=== PATIENT | female | born 1980 | race Two or more races ===

== ENCOUNTER 2016-09-27 03:15 | Inpatient (IN) | payer SELFPAY ==
--- NOTE | ~2016-09-27 | CN ---
Consultation Report [facility] [address] [place]. [address] NAME: KOJO WEAVER : 76 STATUS : ADM IN PAT#: [id number] AGE: 36 ADM/REG DATE : 09/27/16 MR#: [id number] REPORT SERV DATE: 09/28/16 DICTATED BY: CLINTON MURILLO DATE: 09/28/16 REPORT STATUS : Draft TRANSCRIBED BY: YARON DATE: 09/28/16 INFECTIOUS DISEASE CONSULT DATE OF CONSULTATION: REASON FOR CONSULT: Meningitis. HISTORY OF PRESENT ILLNESS: This is a 36-year-old lady with past medical history of "viral meningitis" two years ago at [facility], history of pulmonary embolism and endometriosis who was transferred from [facility] ER for treatment of meningitis. About 12 days ago, she noticed a left upper inner thigh "bite" or "boil" with a purple center, followed by progressive redness and pain around it. Eventually, this place drained mixture of cloudy fluid, blood, and had an odor. She was tired and had a temp in the 99 range. She went to the emergency room about eight days ago at [facility] [place] and was prescribed Augmentin and clindamycin, but she took only the Augmentin. Of note is that she has been having skin lesions in bilateral upper inner thighs and suprapubic areas and the armpits. She did not see either. Four days ago in the evening, she had the acute onset of severe headache all areas and retro orbital, which she describes as a crushing headache. This was made worse by moving. Sometimes, her ears were throbbing. She then had some pain and stiffness in the neck and pain between the scapulae, but hard to focus, her vision was sensitive to light. The headache was severe and woke up during the night. She tried to stay put for a day or two, but eventually went to the emergency room at [facility] [place] two days ago. She did not have any high fever, but she had some body aches, a little nausea, occasional wrist and shoulder pain, and three to four soft bowel movements a day. She noticed a "rash" in both popliteal areas, but this preceded taking the Augmentin. At the emergency room at [facility], she had several investigations. A CT of the brain without contrast was not revealing. LABORATORY WORK: Lab work showed a WBC of 8, hemoglobin 13. Creatinine 0.6. ALT 10, AST 12. Urinalysis with 5-9 white blood cells. She had an LP which apparently was difficult, they had to go multiple times, and I do not have a description of an opening pressure. White blood cell count was elevated with 26 white blood cells in the first tube with 87% lymphocytes with 66 red blood cells and then in tube 4, there were 30 white blood cells, no red blood cells, and 91% lymphocytes; glucose was 62; protein is 35, so not elevated. She was given Rocephin and then she was transferred to [facility]. Here, she was given vancomycin, Rocephin, and acyclovir. Further workup including an MRI of the brain without contrast and an MRV because she had a history of PE. Procalcitonin was Consultation Report [place] [id number] [facility] [place]. [address] NAME: KOJO WEAVER : 76 STATUS : ADM IN [facility]#: [id number] AGE: 36 ADM/REG DATE : 09/27/16 MR#: [id number] REPORT SERV DATE: 09/28/16 DICTATED BY: CLINTON MURILLO DATE: 09/28/16 REPORT STATUS : Draft TRANSCRIBED BY: MODChon DATE: 09/28/16 not elevated. CBC within normal limits. Creatinine 0.6. The headache is not better, in fact, might be worse but it has not changed its character after the spinal tap. She complains of fatigue. She reported no ear drainage. No nose drainage. No sore throat. No vomiting. No urinary symptoms. No toothaches. PAST MEDICAL HISTORY: 1. States she was hospitalized two years ago at [facility] and was told she had viral meningitis, but she was given some kind of antibiotic anyway. She does not know what caused that and does not know what antibiotics did she take. 2. History of pulmonary embolism. 3. Endometriosis and she had some ablation procedure for that. 4. She has history of heartburn. 5. She has been having these furuncles as I described. 6. She reports negative PPDs in the past. No known history of HIV or hepatitis. No history of genital herpes. MEDICATIONS: Claritin, Zyrtec, omeprazole. FAMILY HISTORY: Hypertension, diabetes, stroke, and heart disease. ALLERGIES: NONE. NONE OF HER CONTACTS WERE SICK RECENTLY. 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 She smokes occasionally. Never done drugs or IV drugs. She has two sons, teenagers and two daughters ages 11 and 8. They have not been sick lately. She is in the process of divorce from her ex- who left her for another woman and now she lives with a boyfriend. She is unaware of the boyfriend, ex- , or ex-'s girlfriend having any STDs and/or traveling to [place] area. She works outdoors sometimes in the yard. She has not been hiking, fishing. She has two dogs but no bites or scratches. She has had mosquito bites. She is unaware of tick bites. There are no exposure to animals or bats. She has always lived in [place]. She traveled to [place], [place], in March. No water exposure. No exposure to mice, rats, or bird droppings. No caving. PHYSICAL EXAMINATION: Done in the presence of Griselda registered nurse: HEENT: Sclerae are white. Nose with some mucus in the left nostril. Ears with some wax, but no obvious inflammation in either. LYMPH NODES: No palpable cervical, supraclavicular, or axillary adenopathy. NECK: With good range of motion in all directions but some tenderness when she moves it Consultation Report [place] [id number] [facility] [place]. [address] NAME: KOJO WEAVER : 78 STATUS : ADM IN [facility]#: [id number] AGE: 36 ADM/REG DATE : 09/27/16 MR#: [id number] REPORT SERV DATE: 09/28/16 DICTATED BY: CLINTON MURILLO DATE: 09/28/16 REPORT STATUS : Draft TRANSCRIBED BY: YARON DATE: 09/28/16 [id number]. EXTREMITIES: Armpits with some scars from previous lesions. Same on the upper inner thighs and suprapubic area. Where she had a boil in the left upper thigh, there is just a small hole but there is no cellulitis. With the patient's permission, we did vulvar exam and there is no ulcer or scar. No perianal ulcer or scar. No hands or feet lesions. Both popliteal areas, she has a blanching rash that is papular on the right, more diffuse red on the left. The patient is alert, obese, not in acute distress. INVESTIGATIONS: I called the microbiology lab at [facility] [place] and I was told CSF and one blood cultures are the only cultures done and those are negative so far. No additional CSF tests were ordered. ASSESSMENT AND PLAN: 1. Meningitis with lymphocytic pleocytosis. 2. History of "viral meningitis" years ago at [facility]. 3. Inner thighs and suprapubic furunculosis. 4. Bilateral popliteal blanching rash that preceded taking Augmentin. The etiology of this process is not obvious. 1. She has no history of genital herpes, although recurrent meningitis could be secondary to herpes simplex virus, so-called Mollaret meningitis. 2. The acute onset is not typical for cryptococcus. 3. Bacterial meningitis seems less likely with this presentation and lab findings. 4. West Nile virus or other mosquito-borne infections are possible. No recent travel for her boyfriend to [place] endemic areas. 5. No known tick bites, although she does spend time outdoors. 6. No history of TB. She had negative PPDs in the past. 7. Noninfectious etiologies possible including autoimmune. We will follow up the available cultures and I request CSF for cryptococcal antigen and herpes simplex PCR. As I mentioned, I discussed with the integrated pest management technician at [facility] and here at [facility] to coordinate this. We will follow up liver function test. They typically are elevated with a tick-borne illnesses. Follow up clinically. Antibiotic zuluaga, we will continue the acyclovir for now in case this could be herpes simplex related, but discontinue the vancomycin. Likely, the Rocephin could be stopped as well soon. I discussed the above with the patient and she had the opportunity to ask questions. I discussed with other lab technicians as I mentioned. I reviewed the records from our computer and from [facility]. I spent two hours with this consult, more than half face-to- face. Consultation Report [facility] [address] [place] [address] NAME: KOJO WEAVER : 76 STATUS : ADM IN [facility]#: [id number] AGE: 36 ADM/REG DATE : 09/27/16 MR#: [id number] REPORT SERV DATE: 09/28/16 DICTATED BY: CLINTON MURILLO DATE: 09/28/16 REPORT STATUS : Draft TRANSCRIBED BY: YARON DATE: 09/28/16 ISMRAN/YARON Clinton Murillo M.D. / [id number] CC: Paddy Franklin
--- NOTE | ~2016-09-27 | HP ---
History And Physical [place] [id number] [facility] [place]. [address] NAME: KOJO WEAVER : 76 STATUS : ADM IN PAT#: [id number] AGE: 36 ADM/REG DATE : 09/27/16 MR#: [id number] REPORT SERV DATE: 09/27/16 DICTATED BY: KEY ACEVEDO DATE: 09/27/16 REPORT STATUS : Draft TRANSCRIBED BY: MODL DATE: 09/27/16 DATE OF ADMISSION: 09/27/2016 POINT OF ENTRY: [facility] Emergency Department. PRIMARY CARE PHYSICIAN: Dr. Jurgen Tabor. CHIEF COMPLAINT: Headaches, fevers, neck pain, and stiffness. HISTORY OF PRESENT ILLNESS: Ms Weaver is a 36-year-old female with a prior history of pulmonary embolism as well as viral meningitis who presents to the emergency department today with a two-day history of low-grade fevers, headaches, as well as neck pain and stiffness. The patient states that about a week ago she had a bite on the inner medial part of her left thigh, which then developed some associated redness and induration. She was seen at [facility] Emergency Department and placed on antibiotics of Augmentin as well as clindamycin. The patient admits that she misplaced her clindamycin and has not taken it for quite some time, but is taking her Augmentin. She feels that the cellulitis has improved while on her antibiotics. About two days ago, she started to develop severe headache as well as low-grade fevers of 99 degrees to 100 degrees Fahrenheit as well as associated neck stiffness and pain. These symptoms are very similar to when she had viral meningitis a few years ago; therefore, she presented to the emergency department. Initial evaluation in the emergency department notable for CT scan of the brain that was unremarkable. CBC showed normal white count. CMP was unremarkable. Urinalysis was concerning for possible urinary tract infection. The patient underwent lumbar puncture, results of which are consistent with possible viral meningitis. She was started on IV Rocephin and transferred to [facility] for higher level of care as [facility] does not have any neurologist on-call this weekend. In addition to the left inner thigh cellulitis and headaches, fevers, and neck pain and stiffness, the patient also reports a pruritic rash in the bilateral popliteal region. Otherwise, comprehensive review of system otherwise negative unless listed in the history of present illness. PREVIOUS MEDICAL HISTORY: 1. History of PE. No longer on anticoagulation. 2. History of viral meningitis. 3. Endometriosis. SURGICAL HISTORY: Endometrial ablation. ALLERGIES: NO KNOWN DRUG ALLERGIES. History And Physical [address] [place]. [address] NAME: KOJO WEAVER : 78 STATUS : ADM IN PAT#: [id number] AGE: 36 ADM/REG DATE : 09/27/16 MR#: [id number] REPORT SERV DATE: 09/27/16 DICTATED BY: KEY ACEVEDO DATE: 09/27/16 REPORT STATUS : Draft TRANSCRIBED BY: MODChon DATE: 09/27/16 HOME MEDICATIONS: Pending at the time of dictation. SOCIAL HISTORY: Occasional tobacco use. Denies any alcohol or illicits. 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 FAMILY MEDICAL HISTORY: Mother with hypertension and stroke. Father with diabetes and coronary artery disease. LABS AND IMAGING: All obtained from transfer records from [facility]: 1. White count is 8.3, hemoglobin is 13.2, hematocrit is 39.8, platelets are 233. INR 0.9. 2. Sodium is 135, potassium 3.5, chloride 101, carbon dioxide 28, BUN 9, creatinine 0.65, glucose is 116, calcium is 8.7, protein is 7.4, albumin is 3.5, bilirubin is 0.5, ALT is 10, AST is 12, alkaline phosphatase is 68. 3. Urinalysis: Specific gravity is 1.015 with moderate leukocyte esterase with 5 to 9 white blood cells per high-powered field. 4. CSF analysis; tube #1 is clear in appearance with 26 white blood cells with 66 red blood cells and 87% lymphocytes. CSF tube #4 is clear in appearance, 30 white blood cells with 0 red blood cells and 91% lymphocytes. Tube #2 analysis shows a glucose of 62, protein of 35. Gram stain shows no organisms with a few white blood cells. 5. CT scan of the brain is unremarkable. PHYSICAL EXAMINATION: VITAL SIGNS: Temperature is 98.3 degrees Fahrenheit, pulse is 80, respirations 16, saturating 96% on room air, blood pressure is 140/87. GENERAL: The patient is awake, alert, in no acute distress. Resting comfortably in bed. She is an obese young female. HEENT: Atraumatic and normocephalic. Moist mucous membranes. Pupils are equal, round, reactive to light and accommodation. Extraocular eye movements intact. No scleral icterus. NECK: No jugular venous distention. No carotid bruits. CARDIAC: Regular rate and rhythm. No murmurs or gallops. Normal S1, S2. LUNGS: Clear to auscultation bilaterally. No wheezes, rhonchi, or rales. ABDOMEN: Obese, soft, nontender, nondistended. Good bowel sounds. No rebound, guarding, or rigidity. EXTREMITIES: Warm and perfused with no cyanosis, clubbing, or edema. SKIN: There is an area of cellulitis in the medial portion of her inner left thigh with a small area of superficial ulceration. The area of cellulitis is well within the marker boundaries that were made upon initial diagnosis. The patient also does have a maculopapular rash in the bilateral posterior knee region. PSYCH: Affect appropriate. NEURO: Alert and oriented x3. Cranial nerves 2 through 12 are grossly intact. Speech is normal. Gait not assessed. ASSESSMENT AND PLAN: Ms Weaver is a 36-year-old female who presents with a two-day history of neck pain, stiffness, headaches, and low-grade fevers and found to have evidence of meningitis in a likely viral pattern. History And Physical [address] [address] NAME: KOJO WEAVER : 76 STATUS : ADM IN [facility]#: [id number] AGE: 36 ADM/REG DATE : 09/27/16 MR#: [id number] REPORT SERV DATE: 09/27/16 DICTATED BY: KEY ACEVEDO DATE: 09/27/16 REPORT STATUS : Draft TRANSCRIBED BY: MODChon DATE: 09/27/16 PROBLEM LIST: 1. Meningitis, likely viral. 2. Severe headache. 3. Left thigh cellulitis. PLAN: 1. Meningitis. The patient appears to have meningitis. Both tubes #1 and #4 have greater than 5 white blood cells. The pattern is most consistent with a viral pattern given lymphocytic predominance as well as the mild white cell elevation with relatively normal appearing glucose and protein levels. We will empirically treat for both bacterial and viral meningitis overnight until Neurology is able to see the patient in the morning as well as until CSF culture results are available from [facility]. 2. Severe headache. CT scan of the brain is unremarkable, likely secondary to #1 above. We will treat supportively overnight with Tylenol as well as narcotics. 3. Left thigh cellulitis. This seems to be improving while on the Augmentin. We will hold the patient's Augmentin, and she will be started on Rocephin and vancomycin for bacterial meningitis treatment. 4. DVT prophylaxis. Lovenox subcu. CODE STATUS: The patient wished to be full code. JCB/MODL Key Acevedo MD / [id number] CC: MD Jurgen Dunn MD
--- NOTE | ~2016-09-27 | CN ---
Consultation Report [facility] [address] [place]. [address] NAME: KOJO WEAVER : 78 STATUS : ADM IN PAT#: [id number] AGE: 36 ADM/REG DATE : 09/27/16 MR#: [id number] REPORT SERV DATE: 09/27/16 DICTATED BY: DATE: REPORT STATUS : Draft TRANSCRIBED BY: MODL DATE: 09/27/16 NEUROLOGY CONSULTATION DATE OF CONSULTATION: 09/27/2016 REASON FOR CONSULT: Meningitis. HISTORY OF PRESENT ILLNESS: This is a 36-year-old female, presented to [facility] as outside transfer on 09/27/2016, for suspected viral meningitis. The patient was noted to have roughly four-day duration of the headache located in the entire head. With the patient described the headache as generalized pain. Otherwise, reports some dizzy sensation as well as blurry vision, with photophobia and phonophobia. Denies any nausea or vomiting. The patient reports a low-grade fever for roughly six to seven days, ranging from roughly 99.9 to 100 degrees. The patient otherwise reports the headache is improved with the laying down and going to sleep, and worse with bending over and ambulating. The patient does have previous viral meningitis in the past and reports the headache to be similar to viral meningitis. Otherwise, the patient reports some mild headache one or two times a month, not usually resolve with Tylenol. No history of migraine diagnosis was noted at the time of evaluation. The patient does reports no insect bites in the leg. Roughly one to two weeks ago, with the patient noted to have a rash in the bilateral posterior knee region, as well as a rash around the area of the insect bite. The patient otherwise reports having to concentrate at work, but otherwise no loss consciousness episode was noted. No focal weakness or numbness. No dysarthria was reported. No seizure like activity was noted. The patient, since the hospital transfer was started on IV antibiotic, as well as IV acyclovir. No other changes in medication were noted. The patient denies any other medical issues and denies any other symptoms. REVIEW OF SYSTEMS: Negative except for those mentioned in the HPI. PAST MEDICAL HISTORY: Significant for prior history of PE, previously on anticoagulation, but currently not on anticoagulation. The patient does have a history of endometriosis. The patient has had a history of viral meningitis in the past, diagnosis in [place], [place]. The patient does not remember the causative agent of a viral meningitis. LABORATORY DATA: The patient is outside hospital laboratory study consists of white blood cell count of 8.0, hemoglobin of 13.2, hematocrit of 39.8, and platelet count of 233. The patient's CSF study demonstrated white blood cell count of 26, 97% lymphocytes, and 13% monocytes. The patient noted to have CSF glucose was 62 and protein was 35. Otherwise chemistry panel, sodium 135, potassium 3.5, chloride of 101, bicarb 28, BUN of 9, creatinine 0.65, glucose 116, calcium of 8.7. The patient was noted to have negative serum test. ALLERGIES: THE PATIENT DEMONSTRATED NO KNOWN DRUG ALLERGIES AT TIME OF EVALUATION. Consultation Report [place] [id number] [facility] [place]. [address] NAME: KOJO WEAVER : 76 STATUS : ADM IN [facility]#: [id number] AGE: 36 ADM/REG DATE : 09/27/16 MR#: [id number] REPORT SERV DATE: 09/27/16 DICTATED BY: DATE: REPORT STATUS : Draft TRANSCRIBED BY: MODL DATE: 09/27/16 SOCIAL HISTORY: Reports occasional tobacco usage. Denies alcohol or illicit drug usage. FAMILY HISTORY: Significant for hypertension, stroke, as well as diabetes, and coronary artery disease. HOME MEDICATIONS: Zyrtec, Claritin, as well as Prilosec. PHYSICAL EXAMINATION: VITAL SIGNS: At the time of evaluation, the patient was noted to have vital signs with T- max of 98.7, heart rate of 80 to 90, blood pressure of 115 to 140/58 to 87. GENERAL: The patient is well-developed, well-nourished, in no acute distress. CARDIOVASCULAR: Regular rate and rhythm. No carotid bruits were otherwise auscultated. PULMONARY: Clear to auscultation bilaterally. NEUROLOGIC: Generally, the patient is alert, oriented to person, place, year, and month. Follows simple and two-step commands. No dysarthria. No aphasia. Intact registration and recall. Cranial nerves 2 through 12, pupils equal, round, and reactive to light. Extraocular eye movement was noted to be intact with intact peripheral vision. Symmetrical facial expression and sensation. Midline tongue. Normal palatal movement. Normal hearing. The patient demonstrated 5/5 bilateral upper and lower extremity strength. Normal muscle, bulk, and tone. Deep tendon reflex was 2+ throughout. Symmetrical sensation bilaterally normal [id number] examination without ataxia. The patient demonstrated normal station and normal gait. DIAGNOSTIC DATA: The patient's CT scan at the outside hospital, was noted to have no acute process per reports. No actual imaging was available. The patient since the hospitalization, was noted to have procalcitonin level of less than 0.05. IMPRESSION: Headache. The patient's CSF from outside hospital was reviewed which demonstrated normal glucose as well as protein. Mild leukocytosis of roughly 26 to 30 white blood cell counts, question of inflammatory changes versus meningitis. The patient does have recent insect bites, also concern for possible tick borne diseases. We are recommending ID consult. We will check MRI of the brain as well as the MRV of the brain for a deep venous sinus thrombosis, as the patient was noted to have previous history of pulmonary embolism. We are recommending Depakote 125 mg IV b.i.d., as well as Toradol 30 mg IV t.i.d. for headache. Differential diagnosis including possible migraine headache, versus viral meningitis, versus changing intracranial pressure, versus of venous sinus thrombosis. RECOMMENDATION: 1. Depakote 125 mg IV b.i.d. 2. Toradol 30 mg IV t.i.d. 3. MRI and MRV of the head. 4. ID consult. Consultation Report [address] [address] NAME: KOJO WEAVER : 76 STATUS : ADM IN [facility]#: [id number] AGE: 36 ADM/REG DATE : 09/27/16 MR#: [id number] REPORT SERV DATE: 09/27/16 DICTATED BY: DATE: REPORT STATUS : Draft TRANSCRIBED BY: MODL DATE: 09/27/16 [facility]/MODChon John Winston MD / [id number] CC: Richard Wood MD
--- NOTE | ~2016-09-27 | DS ---
Discharge Summary [facility] [address] [facility] [place]. [address] NAME: OKJO WEAVER : 76 STATUS : DIS IN PAT#: [id number] AGE: 36 ADM/REG DATE : 09/27/16 MR#: [id number] REPORT SERV DATE: 10/03/16 DICTATED BY: JOSLYN MCCARTY DATE: 10/02/16 REPORT STATUS : Draft TRANSCRIBED BY: MODL DATE: 10/02/16 ADMISSION DATE: 09/27/2016 DISCHARGE DATE: 10/02/2016 The patient is a 36-year-old female with no significant medical history, who presented to the hospital with a complaint of headache, fevers, neck pain and stiffness. For further details please refer to H and P dictated by Dr. Bronson on 09/27/2016. HOSPITAL COURSE: Upon presentation to the emergency room given her complaint she underwent an LP which was consistent with a viral meningitis. The patient was admitted under Hospitalist Service for further management, started on IV antibiotic and IV antiviral. Neurology was also consulted. For further details please refer to consultation note dictated on 09/27/[address] Winston. Also Infectious Disease was also consulted. For further details please refer to consultation note dictated by Dr. Sen on 09/28/2016. During the patient's hospitalization HSV was ordered, another lab work was ordered. Per Infectious Disease evaluation given the patient's CSF studies were more consistent with a viral etiology, IV antibiotics were subsequently discontinued. The patient was continued on IV acyclovir. Her headache and neck stiffness continued. The patient subsequently had a blood patch placed at the site of her lumbar puncture with subsequent resolution of her headache and symptoms. Workup so far has been negative. The patient has responded well to acyclovir. The patient has been followed throughout her hospitalization by Infectious Disease and Neurology. Also of note, when the patient was started initially on Depakote given her persistent neck stiffness and headache; however, status post blood patch with resolution of her headache, Depakote was discontinued. Additional history obtained from the patient, placed her at risk for mononucleosis, Monospot was ordered which was positive. The patient's HSV test did come back negative, given this negative finding IV acyclovir was discontinued. Given negative workup so far Infectious Disease has discontinued acyclovir. From a Neurology standpoint the patient is cleared to go and is okay for discharge, and Infectious Disease is also okay for the patient to be discharged home. During her hospital course, the patient has remained hemodynamically stable. DISCHARGE PHYSICAL EXAMINATION: VITAL SIGNS: Blood pressure 122/80 with a pulse of 85, respirations 18, and O2 saturation 94% on room air. GENERAL: The patient is lying in bed, in no acute distress. HEENT: Normocephalic and atraumatic. Extraocular motors intact. Moist oral mucosa. NECK: No neck stiffness noted. No JVD present. No thyromegaly noted. No lymphadenopathy present. CARDIOVASCULAR: Regular rate and rhythm. S1, S2. No murmurs, rubs, or gallops. LUNGS: Clear to auscultation bilaterally. No added breath sounds. ABDOMEN: Obese. Positive bowel sounds. Nontender. Nondistended. EXTREMITIES: No cyanosis, no clubbing, no edema. NEUROLOGIC: Alert and oriented x3. No focal deficits appreciated. DISCHARGE MEDICATIONS: Her home medications were continued. No medications added this hospitalization. The only home medications include: 1. Omeprazole 20 mg p.o. daily. Discharge Summary [address] [address] NAME: KOJO WEAVER : 76 STATUS : DIS IN PAT#: [id number] AGE: 36 ADM/REG DATE : 09/27/16 MR#: [id number] REPORT SERV DATE: 10/03/16 DICTATED BY: JOSLYN MCCARTY DATE: 10/02/16 REPORT STATUS : Draft TRANSCRIBED BY: YARON DATE: 10/02/16 2. Zyrtec 5 mg p.o. daily. 3. Claritin-D 24 hour tablet, one tablet p.o. daily. IMAGING: MRI of brain without contrast. Impression: 1. Normal MRI of the brain. 2. Mild sinus inflammatory changes. 3. The MRV of the brain does not demonstrate venous thrombus or arteriovenous malformation. DISPOSITION: The patient will be discharged home. DISCHARGE INSTRUCTIONS: The patient is not to return to work until seen by primary care physician in five to seven days. ACTIVITY: As tolerated. DIET: As tolerated. Greater than 30 minutes were spent coordinating discharge, dictation of note, medication reconciliation, discussion of care with consultants. DICTATED BY: MD MAITE Gabriel/YARON Joslyn Mccarty MD / [id number] CC: MD Jurgen Gabriel MD
[2016-09-27] MEDS ORDERED: PRILOSEC OTC20 MG (04:41)
[2016-09-27] MEDS ORDERED: CETIRIZINE HCL5 MG (04:42)
[2016-09-27] MEDS ORDERED: CLARITD24H PO (04:43)
[2016-09-27 06:07] LABS: CREATININE 0.71 MG/DL (0.55-1.02); GFR AFRICAN AMERICAN 125 ML/MIN (>=60); GFR NON AFRICAN AMERICAN 108 ML/MIN (>=60)
[2016-09-27 08:10] LABS: BASOPHILS 0.6 %; BASOPHILS ABSOLUTE 0.04 10/3/uL (0.0-0.16); EOSINOPHILS 3.1 %; EOSINOPHILS ABSOLUTE 0.21 10/3/uL (0.0-0.53); HEMOGLOBIN 12.6 g/dL (12.0-16.0); IMMATURE GRANULOCYTES 0.4 %; IMMATURE GRANULOCYTES ABSOLUTE 0.03 10/3/uL (0.0-0.11); LYMPHOCYTES ABSOLUTE 2.44 10/3/uL (0.67-4.30); MEAN CORPUS HGB CONC 32.3 g/dL (32.0-36.0); MEAN CORPUSCULAR HEMOGLOB 27.9 pg (26.0-34.0); MEAN CORPUSCULAR VOLUME 86.3 fL (80-100); MEAN PLATELET VOLUME 10.9 fL (9.2-13.0); MONOCYTES 6.2 %; MONOCYTES ABSOLUTE 0.42 10/3/uL (0.21-1.20); NEUTROPHILS 53.7 %; NEUTROPHILS ABSOLUTE 3.64 10/3/uL (2.02-8.40); PLATELET COUNT 230 10/3/uL (150-400); RBC DISTRIBUTION WIDTH 13.3 % (12.0-16.0); RED CELL COUNT 4.52 10/6/uL (4.0-5.6); WHITE BLOOD CELLS 6.8 10/3/uL (4.5-10.5)
[2016-09-27 08:13] LABS: MANUAL DIFF NO %
[2016-09-27 09:00] LABS: PROCALCITONIN <0.05 ng/mL (<0.5)
[2016-09-27 09:08] LABS: BUN (BLOOD UREA NITROGEN) 10 MG/DL (6-23); CALCIUM, SERUM 8.2 MG/DL (8.5-10.4); CHLORIDE, SERUM 106 MMOL/L (96-112); CO2 (CARBON DIOXIDE) 27 MMOL/L (24-34); GLUCOSE, SERUM 109 MG/DL (60-99); POTASSIUM, SERUM 4.2 MMOL/L (3.5-5.3); SODIUM, SERUM 140 MMOL/L (135-148)
[2016-09-28 07:14] LABS: BASOPHILS 0.2 %; BASOPHILS ABSOLUTE 0.02 10/3/uL (0.0-0.16); EOSINOPHILS ABSOLUTE 0.26 10/3/uL (0.0-0.53); HEMATOCRIT 36.7 % (36.0-48.0); IMMATURE GRANULOCYTES 0.1 %; IMMATURE GRANULOCYTES ABSOLUTE 0.01 10/3/uL (0.0-0.11); LYMPHOCYTES 20.7 %; LYMPHOCYTES ABSOLUTE 1.82 10/3/uL (0.67-4.30); MEAN CORPUS HGB CONC 32.7 g/dL (32.0-36.0); MEAN CORPUSCULAR VOLUME 85.5 fL (80-100); MEAN PLATELET VOLUME 10.5 fL (9.2-13.0); MONOCYTES 4.6 %; NEUTROPHILS 71.4 %; NEUTROPHILS ABSOLUTE 6.28 10/3/uL (2.02-8.40); PLATELET COUNT 206 10/3/uL (150-400); RBC DISTRIBUTION WIDTH 13.3 % (12.0-16.0); RED CELL COUNT 4.29 10/6/uL (4.0-5.6); WHITE BLOOD CELLS 8.8 10/3/uL (4.5-10.5)
[2016-09-28 07:16] LABS: BUN (BLOOD UREA NITROGEN) 7 MG/DL (6-23); CHLORIDE, SERUM 106 MMOL/L (96-112); CO2 (CARBON DIOXIDE) 27 MMOL/L (24-34); CREATININE 0.63 MG/DL (0.55-1.02); GFR AFRICAN AMERICAN 132 ML/MIN (>=60); GFR NON AFRICAN AMERICAN 114 ML/MIN (>=60); GLUCOSE, SERUM 104 MG/DL (60-99); POTASSIUM, SERUM 4.3 MMOL/L (3.5-5.3); SODIUM, SERUM 137 MMOL/L (135-148)
[2016-09-28 07:18] LABS: MANUAL DIFF NO %
[2016-09-28 13:40] LABS: ALBUMIN 2.9 G/DL (3.5-5.0); ALKALINE PHOSPHATASE 57 U/L (45-117); DIRECT BILIRUBIN < 0.1 MG/DL (0.0-0.4); INDIRECT BILIRUBIN(NOT ORDER) 0.3 MG/DL (0.1-0.9); SGOT(AST) 18 U/L (5-40); SGPT(ALT) 19 U/L (5-65); TOTAL BILIRUBIN 0.4 MG/DL (0-1.2)
[2016-09-28 17:13] LABS: TOTAL PROTEIN 6.6 G/DL (6.0-8.5)
[2016-09-28 19:03] LABS: CHLAMYDIA TRACH PCR NOT DETECTED (NOT DETEC); GC PCR NOT DETECTED (NOT DETECT); SOURCE: ENDOCERVICAL/VAGINAL
[2016-09-29 06:17] LABS: BASOPHILS 0.3 %; BASOPHILS ABSOLUTE 0.02 10/3/uL (0.0-0.16); EOSINOPHILS 5.2 %; EOSINOPHILS ABSOLUTE 0.31 10/3/uL (0.0-0.53); HEMOGLOBIN 12.7 g/dL (12.0-16.0); IMMATURE GRANULOCYTES 0.5 %; IMMATURE GRANULOCYTES ABSOLUTE 0.03 10/3/uL (0.0-0.11); LYMPHOCYTES 39.1 %; LYMPHOCYTES ABSOLUTE 2.32 10/3/uL (0.67-4.30); MEAN CORPUS HGB CONC 33.4 g/dL (32.0-36.0); MEAN CORPUSCULAR HEMOGLOB 28.7 pg (26.0-34.0); MEAN CORPUSCULAR VOLUME 85.8 fL (80-100); MEAN PLATELET VOLUME 10.3 fL (9.2-13.0); MONOCYTES 5.1 %; NEUTROPHILS 49.8 %; NEUTROPHILS ABSOLUTE 2.96 10/3/uL (2.02-8.40); PLATELET COUNT 192 10/3/uL (150-400); RBC DISTRIBUTION WIDTH 12.9 % (12.0-16.0); RED CELL COUNT 4.43 10/6/uL (4.0-5.6); WHITE BLOOD CELLS 5.9 10/3/uL (4.5-10.5)
[2016-09-29 06:18] LABS: MANUAL DIFF NO %
[2016-09-29 06:28] LABS: BUN (BLOOD UREA NITROGEN) 6 MG/DL (6-23); CALCIUM, SERUM 8.2 MG/DL (8.5-10.4); CHLORIDE, SERUM 108 MMOL/L (96-112); CO2 (CARBON DIOXIDE) 29 MMOL/L (24-34); CREATININE 0.54 MG/DL (0.55-1.02); GFR AFRICAN AMERICAN 139 ML/MIN (>=60); GFR NON AFRICAN AMERICAN 120 ML/MIN (>=60); GLUCOSE, SERUM 101 MG/DL (60-99); POTASSIUM, SERUM 4.3 MMOL/L (3.5-5.3); SODIUM, SERUM 141 MMOL/L (135-148)
[2016-09-29 09:43] LABS: HEPATITIS B SURFACE ANTIGEN NON-REACTIVE (NON-REACT)
[2016-09-29 09:54] LABS: HEPATITIS B CORE AB IGM NON-REACTIVE (NON-REAC); HEPATITIS C ANTIBODY NON-REACTIVE (NON-REACT)
[2016-09-29 09:55] LABS: HIV COMBO NON-REACTIVE (NON REAC)
[2016-09-29 09:56] LABS: HEP A ANTIBODY IGM NON-REACTIVE (NON-REACT)
[2016-09-30 06:49] LABS: BASOPHILS 0.3 %; BASOPHILS ABSOLUTE 0.02 10/3/uL (0.0-0.16); EOSINOPHILS 5.1 %; EOSINOPHILS ABSOLUTE 0.32 10/3/uL (0.0-0.53); HEMOGLOBIN 12.8 g/dL (12.0-16.0); IMMATURE GRANULOCYTES 0.2 %; IMMATURE GRANULOCYTES ABSOLUTE 0.01 10/3/uL (0.0-0.11); LYMPHOCYTES 45.8 %; LYMPHOCYTES ABSOLUTE 2.89 10/3/uL (0.67-4.30); MANUAL DIFF NO %; MEAN CORPUS HGB CONC 32.8 g/dL (32.0-36.0); MEAN CORPUSCULAR HEMOGLOB 28.1 pg (26.0-34.0); MEAN CORPUSCULAR VOLUME 85.5 fL (80-100); MEAN PLATELET VOLUME 10.4 fL (9.2-13.0); MONOCYTES 4.4 %; MONOCYTES ABSOLUTE 0.28 10/3/uL (0.21-1.20); NEUTROPHILS 44.2 %; NEUTROPHILS ABSOLUTE 2.79 10/3/uL (2.02-8.40); PLATELET COUNT 202 10/3/uL (150-400); RBC DISTRIBUTION WIDTH 13.1 % (12.0-16.0); RED CELL COUNT 4.56 10/6/uL (4.0-5.6); WHITE BLOOD CELLS 6.3 10/3/uL (4.5-10.5)
[2016-09-30 07:17] LABS: A/G RATIO 0.7 (0.7-1.9); ALBUMIN 2.9 G/DL (3.5-5.0); ALKALINE PHOSPHATASE 58 U/L (45-117); BUN (BLOOD UREA NITROGEN) 6 MG/DL (6-23); CALCIUM, SERUM 8.4 MG/DL (8.5-10.4); CHLORIDE, SERUM 105 MMOL/L (96-112); CO2 (CARBON DIOXIDE) 28 MMOL/L (24-34); CREATININE 0.61 MG/DL (0.55-1.02); GFR AFRICAN AMERICAN 133 ML/MIN (>=60); GFR NON AFRICAN AMERICAN 115 ML/MIN (>=60); GLUCOSE, SERUM 86 MG/DL (60-99); SGOT(AST) 21 U/L (5-40); SGPT(ALT) 27 U/L (5-65); SODIUM, SERUM 138 MMOL/L (135-148); TOTAL BILIRUBIN 0.4 MG/DL (0-1.2); TOTAL PROTEIN 6.9 G/DL (6.0-8.5)
[2016-10-01 06:26] LABS: A/G RATIO 0.7 (0.7-1.9); ALKALINE PHOSPHATASE 61 U/L (45-117); BUN (BLOOD UREA NITROGEN) 9 MG/DL (6-23); CALCIUM, SERUM 8.4 MG/DL (8.5-10.4); CHLORIDE, SERUM 108 MMOL/L (96-112); CO2 (CARBON DIOXIDE) 29 MMOL/L (24-34); CREATININE 0.57 MG/DL (0.55-1.02); GFR AFRICAN AMERICAN 136 ML/MIN (>=60); GFR NON AFRICAN AMERICAN 118 ML/MIN (>=60); GLOBULIN 4.1 G/DL (2.5-4.1); GLUCOSE, SERUM 85 MG/DL (60-99); POTASSIUM, SERUM 4.4 MMOL/L (3.5-5.3); SGOT(AST) 13 U/L (5-40); SGPT(ALT) 21 U/L (5-65); SODIUM, SERUM 142 MMOL/L (135-148); TOTAL BILIRUBIN 0.6 MG/DL (0-1.2); TOTAL PROTEIN 7.1 G/DL (6.0-8.5)
[2016-10-01 06:42] LABS: BASOPHILS 0.3 %; BASOPHILS ABSOLUTE 0.02 10/3/uL (0.0-0.16); EOSINOPHILS ABSOLUTE 0.28 10/3/uL (0.0-0.53); HEMATOCRIT 38.7 % (36.0-48.0); HEMOGLOBIN 12.7 g/dL (12.0-16.0); IMMATURE GRANULOCYTES 0.3 %; IMMATURE GRANULOCYTES ABSOLUTE 0.02 10/3/uL (0.0-0.11); LYMPHOCYTES ABSOLUTE 2.32 10/3/uL (0.67-4.30); MEAN CORPUS HGB CONC 32.8 g/dL (32.0-36.0); MEAN CORPUSCULAR HEMOGLOB 28.2 pg (26.0-34.0); MEAN CORPUSCULAR VOLUME 85.8 fL (80-100); MEAN PLATELET VOLUME 10.7 fL (9.2-13.0); MONOCYTES ABSOLUTE 0.35 10/3/uL (0.21-1.20); NEUTROPHILS 57.4 %; NEUTROPHILS ABSOLUTE 4.04 10/3/uL (2.02-8.40); PLATELET COUNT 227 10/3/uL (150-400); RED CELL COUNT 4.51 10/6/uL (4.0-5.6)
[2016-10-01 06:43] LABS: MANUAL DIFF NO %
[2016-10-02 06:21] LABS: BASOPHILS 0.3 %; BASOPHILS ABSOLUTE 0.02 10/3/uL (0.0-0.16); EOSINOPHILS 0.9 %; EOSINOPHILS ABSOLUTE 0.07 10/3/uL (0.0-0.53); HEMATOCRIT 37.3 % (36.0-48.0); HEMOGLOBIN 12.4 g/dL (12.0-16.0); IMMATURE GRANULOCYTES 0.1 %; IMMATURE GRANULOCYTES ABSOLUTE 0.01 10/3/uL (0.0-0.11); LYMPHOCYTES 23.6 %; LYMPHOCYTES ABSOLUTE 1.88 10/3/uL (0.67-4.30); MEAN CORPUS HGB CONC 33.2 g/dL (32.0-36.0); MEAN CORPUSCULAR HEMOGLOB 28.2 pg (26.0-34.0); MEAN CORPUSCULAR VOLUME 84.8 fL (80-100); MEAN PLATELET VOLUME 10.9 fL (9.2-13.0); NEUTROPHILS 70.1 %; NEUTROPHILS ABSOLUTE 5.59 10/3/uL (2.02-8.40); PLATELET COUNT 211 10/3/uL (150-400); RBC DISTRIBUTION WIDTH 13.1 % (12.0-16.0)
[2016-10-02 06:23] LABS: MANUAL DIFF NO %
[2016-10-02 06:36] LABS: A/G RATIO 0.7 (0.7-1.9); ALBUMIN 2.9 G/DL (3.5-5.0); BUN (BLOOD UREA NITROGEN) 6 MG/DL (6-23); CALCIUM, SERUM 8.2 MG/DL (8.5-10.4); CHLORIDE, SERUM 105 MMOL/L (96-112); CO2 (CARBON DIOXIDE) 27 MMOL/L (24-34); CREATININE 0.62 MG/DL (0.55-1.02); GFR AFRICAN AMERICAN 133 ML/MIN (>=60); GFR NON AFRICAN AMERICAN 114 ML/MIN (>=60); GLOBULIN 4.1 G/DL (2.5-4.1); GLUCOSE, SERUM 91 MG/DL (60-99); POTASSIUM, SERUM 3.7 MMOL/L (3.5-5.3); SGOT(AST) 15 U/L (5-40); SGPT(ALT) 21 U/L (5-65); SODIUM, SERUM 139 MMOL/L (135-148)
[2016-10-02 06:37] LABS: ALKALINE PHOSPHATASE 77 U/L (45-117); TOTAL BILIRUBIN 1.1 MG/DL (0-1.2)
[2016-10-05 12:17] LABS: EPSTEIN BARR VIRUS RESULT Not Detected (NOTDET)
[2016-10-06 03:25] LABS: EPSTEIN BARR VIRUS RESULT Not Detected (NOTDET); SPECIMEN SOURCE Serum (())
== END 2016-10-02 19:36 | disposition home or self-care (01) | DRG 75 ==
LOC: 5SO 03:15
PROVIDERS: Hospitalist; Internal Medicine; Internal Medicine Infectious Disease; Nurse Practitioner; Nurse Practitioner Family
PROC: 3E0R3GC Introduction of Other Therapeutic Substance into Spinal Canal, Percutaneous Approach (ICD-10-PCS; principal; 2016-10-01)
DX: A87.2 Lymphocytic choriomeningitis (principal); L03.116 Cellulitis of left lower limb; I10 Essential (primary) hypertension; Z68.42 Body mass index [BMI] 45.0-49.9, adult; Z86.711 Personal history of pulmonary embolism; Z82.3 Family history of stroke; Z82.49 Family history of ischemic heart disease and other diseases of the circulatory system; L02.426 Furuncle of left lower limb; L02.425 Furuncle of right lower limb; R21 Rash and other nonspecific skin eruption; E66.01 Morbid (severe) obesity due to excess calories; Z98.890 Other specified postprocedural states; G97.1 Other reaction to spinal and lumbar puncture
CPT/HCPCS: 62273; 70544; 70551; 70553; 72142; 77003; 80048; 80053; 80074; 80076; 82565; 83735; 84145; 84703; 85025; 86308; 86592; 87327; 87389; 87491; 87591; 87798; A9270-GY; A9577; J0133; J0780; J1170; J1885; J2250; J3010; J3370